=== PATIENT | female | born 1980 | race Caucasian/White ===

== ENCOUNTER → 2016-04-21 | Outpatient (CLI) | payer MEDICAID ==
[~2016-04-21] MED LIST: ADIPEX-P37.5 M2 PO; AUGMENTIN 875-1 EACH PO; CEPHALEXIN500 MG PO; CIPRO 250MG TA250 MG PO; CIPRO 500MG TA500 MG PO; FUROSEMIDE40 MG PO; MOTRIN 600MG.600 MG PO; NAPROSYN 500MG500 MG PO; NAPROXEN SODIU500 MG PO; NOMEDS; NOMEDS XX; NORFLEX100 MG PO; SILVADENE CREAM50 GM TP; TIZANIDINE HCL 44 MG PO; TRAMADOL 50MG T50 MG PO; ZITHROMAX Z PA250 MG PO; ZITHROMAX Z-PA250 M1 PO
== END ==
LOC: LAB 14:17
DX: R30.0 Dysuria (principal)

== ENCOUNTER → 2017-01-12 | Outpatient (CLI) | payer MEDICAID ==
[2017-01-12 13:58] LABS: HEMOGLOBIN 12.4 g/dL (12.2-16.2); LYMPH # 1.4 K/mm3 (0.7-4.5); LYMPH % 21.9 % (10-50.0)
[2017-01-12 15:35] LABS: BUN 12 mg/dL (7-18)
[2017-01-12 16:03] LABS: GFR (ESTIMATED) 112 ML/MIN (59-)
== END ==
LOC: LAB 11:11
PROVIDERS: Nurse Practitioner Family
DX: R53.83 Other fatigue (principal)